=== PATIENT | female | born 1965 | race Caucasian/White ===

== ENCOUNTER 2017-11-11 14:21 | Outpatient (RCR) | payer MEDICAID, SELFPAY | END 2017-11-11 23:59 | LOC: PT 14:21 | PROVIDERS: Visit Provider Family Medicine Geriatric Medicine | DX: M54.5 Low back pain (principal) ==

== ENCOUNTER 2017-11-15 09:30 | Outpatient (RCR) | payer MEDICAID, SELFPAY | END 2017-11-15 23:59 | LOC: PT 09:30 | PROVIDERS: Visit Provider Family Medicine Geriatric Medicine | DX: M54.5 Low back pain (principal) | CPT/HCPCS: 97010; 97014; 97110; 97162; G0283 ==

== ENCOUNTER 2019-04-27 11:00 | Outpatient (RCR) | payer MEDICAID, SELFPAY | END 2019-04-27 11:05 | disposition home or self-care (01) | LOC: PT 11:00 | PROVIDERS: Visit Provider Family Medicine | DX: M54.2 Cervicalgia (principal) | CPT/HCPCS: 97010; 97014; 97035; 97110; 97140; 97163; G0283 ==